=== PATIENT | female | born 2000 | race Caucasian/White ===

== ENCOUNTER → 2023-07-17 08:42 | Outpatient (REF) | payer OTHER, SELFPAY ==
[2023-07-17 10:12] LABS: Hepatitis B Surface Antigen Negative (Negative)
[2023-07-17 10:29] LABS: Hepatitis B Surface Antibody Positive; Hepatitis C Antibody Negative (Negative)
[2023-07-17 12:41] LABS: HIV Combo Negative (Negative)
== END ==
LOC: REG 08:42
PROVIDERS: ATTENDING PHYSICIAN Nurse Practitioner Family
DX: Z57.8 Occupational exposure to other risk factors (principal)
CPT/HCPCS: 86706; 86803; 87340; 87389